=== PATIENT | female | born 1935 | race Caucasian/White ===

== ENCOUNTER 2019-09-17 17:38 | Emergency (ER) | payer MEDICARE, SELFPAY ==
--- NOTE | ~2019-09-17 | XR_ITS ---
EXAMINATION: XR knee LT min 4V DATE: 09/17/2019 18:35 INDICATION: Posterior left knee pain following twisting injury. TECHNIQUE: Anteroposterior, 2 oblique and crosstable lateral views of the left knee were obtained COMPARISON: None. FINDINGS: Alignment is normal. No fracture. Small patellar marginal osteophytes with mild cortical irregularit y along the apical ridge consistent with at least mild osteoarthritis. Possible small left knee joint effusion without layering lipohemarthrosis. Multiple prominent subcutaneous varicosities extending f rom the visualized mid thigh to the proximal calf. IMPRESSION: 1. No acute osseous abnormality. Reviewed, dictated and finalized at location A. [employer]
[2019-09-17 18:04] VITALS: BP 119/61; PULSE 81; RESP 18; TEMP 37.7; O2SAT 97
--- NOTE | 2019-09-17 19:10 | ED.LOWEXIN ---
HPI - Extremity Injury (Lower) General Chief Complaint: Extremity Injury, Lower Stated Complaint: left knee pain Time Seen by Provider: 09/17/19 19:10 Source: patient and RN notes reviewed Mode of arrival: ambulatory Limitations: no limitations History of Present Illness HPI Narrative: 83 year old female presents to [facility] care with complaints of left knee pain in posterior aspect with some radiation to posterior thigh for the past 3-4 days. Patient states that she got into a jeep and felt a pull in the posterior aspect of her left knee. [facility] and walked more thee than she has been with increase in her pain this evening. Patient has strong pulses to her left foot, denies any tingling or numbness to left leg or foot, has taken Ibuprofen and used arthritis cream and heating pad to her knee with no resolution of her symptoms. MD complaint: knee injury Onset (ago): day(s) (3-4 days) Injury: Left: knee Type of Injury: hyperextension and hyperflexion Place: home Relieving factors: NSAID, rest and other (arthritis cream, epsom salt bath and heating pad) Exacerbating factors: weight bearing and movement (especially bending) Context: other (getting into jeep) Associated symptoms: ambulatory (with limping gait) and other (pulling sensation posterior left knee) Other symptoms: none Treatments prior to arrival: NSAIDS and other (heat, epsom salt bath, arthritis cream) Related Data Home Medications Medication Instructions Recorded Confirmed albuterol sulfate [ProAir HFA] 2 puff INHALATION QID PRN 09/17/19 09/17/19 aspirin 81 mg PO DAILY 09/17/19 09/17/19 hydrochlorothiazide 50 mg PO DAILY 09/17/19 09/17/19 sertraline [Zoloft] 25 mg PO DAILY 09/17/19 09/17/19 verapamil 180 mg PO DAILY 09/17/19 09/17/19 Allergies Allergy/AdvReac Type Severity Reaction Status Date / Time Sulfa (Sulfonamide Allergy Mild Dizziness Verified 09/17/19 18:23 Antibiotics) erythromycin base AdvReac Intermediate Palpitation Verified 09/17/19 18:23 s morphine AdvReac Intermediate Headache Verified 09/17/19 18:23 naproxen AdvReac Intermediate Palpitation Verified 09/17/19 18:23 s beta blockers AdvReac Intermediate Dyspnea / Uncoded 05/08/15 19:19 SOB Review of Systems Review of Systems: Narrative: CONSTITUTIONAL: Denies fever, chills, or sweats. EYES: Denies visual changes, redness, or discharge. ENT: Denies rhinorrhea, congestion, sore throat, or otalgia. CARDIOVASCULAR: Denies chest pain, palpitations, or edema. RESPIRATORY: Denies cough or dyspnea. GASTROINTESTINAL: Denies abdominal pain, nausea, vomiting, or diarrhea. GENITOURINARY: Denies dysuria or hematuria. SKIN: Denies rash or itching. MUSCULOSKELETAL: Denies back pain, positive for pain to posterior aspect of left knee,myalgia. NEUROLOGIC: Denies headache, numbness, or weakness. PSYCHIATRIC:positive for anxiety no depression. All systems reviewed & are unremarkable except as noted in HPI and below PMFSH Past Medical History Medical History (Updated 09/19/19 @ 16:23 by Chhaya Levy NP) Anxiety Asthma Diverticulitis GERD (gastroesophageal reflux disease) Surgical History Surgical History (Updated 09/19/19 @ 15:27 by Chhaya Levy NP) H/O breast biopsy H/O: hysterectomy History of carpal tunnel surgery Social History Social History (Updated 09/19/19 @ 15:27 by Chhaya Levy NP) Smoking status: Never smoker Living arrangements: with family Occupation/Education: retired Gender identity (if verbalized by the patient): Female Comments At time of signature, agree with nursing past medical, surgical, social and family history. There is no relevant family history pertinent to the presenting complaint Exam Narrative: Exam Narrative: GENERAL: Well-appearing, well-nourished, and in no acute distress. HEAD: Normocephalic, atraumatic. EYES: PERRLA and EOMI. ENT: Nares clear, no rhinorrhea or epistaxis. Mucous membranes m
== END 2019-09-17 19:43 | disposition home or self-care (01) ==
PROVIDERS: Emergency Provider Registered Nurse; PCP Internal Medicine
DX: S83.92XA Sprain of unspecified site of left knee, initial encounter (principal); X50.3XXA Overexertion from repetitive movements, initial encounter; Y93.01 Activity, walking, marching and hiking; M17.12 Unilateral primary osteoarthritis, left knee; M25.462 Effusion, left knee; F41.9 Anxiety disorder, unspecified; J45.909 Unspecified asthma, uncomplicated; K21.9 Gastro-esophageal reflux disease without esophagitis
CPT/HCPCS: 73564; 99213; G0463

== ENCOUNTER 2019-12-24 15:30 | Emergency (ER) | payer MEDICARE, SELFPAY ==
--- NOTE | 2019-12-24 15:35 | ED.GENADULT ---
HPI - General Adult General Chief complaint: Ear Stated complaint: ear wax Time Seen by Provider: 12/24/19 15:35 Source: patient Mode of arrival: ambulatory Limitations: no limitations History of Present Illness HPI narrative: 83-year-old female patient presents to the [facility] with complaints of ear wax in the right ear. Patient states that she went to get her fitted for her hearing aids today and the molding process technician told her that she had some earwax in her right ear that needed to be removed before she can get fitted because he did not want to push it into the eardrum. Patient denies any pain to the ear. Denies any discharge or fevers. Related Data Home Medications Medication Instructions Recorded Confirmed albuterol sulfate [ProAir HFA] 2 puff INHALATION QID PRN 09/17/19 12/24/19 aspirin 81 mg PO DAILY 09/17/19 12/24/19 hydrochlorothiazide 50 mg PO DAILY 09/17/19 12/24/19 sertraline [Zoloft] 25 mg PO DAILY 09/17/19 12/24/19 verapamil 180 mg PO DAILY 09/17/19 12/24/19 Allergies Allergy/AdvReac Type Severity Reaction Status Date / Time Sulfa (Sulfonamide Allergy Mild Dizziness Verified 12/24/19 15:38 Antibiotics) Beta-Blockers AdvReac Intermediate Dyspnea / Verified 12/24/19 15:38 (Beta-Adrenergic Bloc SOB erythromycin base AdvReac Intermediate Palpitation Verified 12/24/19 15:38 s morphine AdvReac Intermediate Headache Verified 12/24/19 15:38 naproxen AdvReac Intermediate Palpitation Verified 12/24/19 15:38 s Review of Systems Review of Systems: Narrative: CONSTITUTIONAL: Denies fever, chills, or sweats. EYES: Denies visual changes, redness, or discharge. ENT: Denies rhinorrhea, congestion, sore throat, or otalgia. Positive earwax right ear CARDIOVASCULAR: Denies chest pain, palpitations, or edema. RESPIRATORY: Denies cough or dyspnea. GASTROINTESTINAL: Denies abdominal pain, nausea, vomiting, or diarrhea. GENITOURINARY: Denies dysuria or hematuria. SKIN: Denies rash or itching. MUSCULOSKELETAL: Denies back pain, joint pain, or myalgia. NEUROLOGIC: Denies headache, numbness, or weakness. PSYCHIATRIC: Denies anxiety or depression. ON LICENSE OF [facility] Past Medical History Medical History Anxiety Asthma Diverticulitis GERD (gastroesophageal reflux disease) Surgical History Surgical History H/O breast biopsy H/O: hysterectomy History of carpal tunnel surgery Social History Social History Smoking status: Never smoker Gender identity (if verbalized by the patient): Female Comments At the time of my signature I agree with nursing past medical history, surgical, social, and family history. There is no relevant family history pertinent to the presenting complaint. Exam Narrative: Exam Narrative: GENERAL: Well-appearing, well-nourished, and in no acute distress. HEAD: Normocephalic, atraumatic. EYES: PERRLA and EOMI. ENT: Nares clear, no rhinorrhea or epistaxis. Mucous membranes moist. Patient has a little bit of earwax noted to the right ear in the canal it is nonobstructing. TM looks well intact with no surrounding erythema. NECK: Supple. No lymphadenopathy CHEST: Clear to auscultation. No respiratory distress. HEART: Regular rate and rhythm. No murmur heard. Normal peripheral pulses. ABDOMEN: Soft, nontender, nondistended, normal active bowel sounds. EXTREMITIES: Normal range of motion. No edema. SKIN: Warm, dry, no rash. NEURO: No focal deficits. Alert and oriented x3. Course Vital Signs Vital signs: Vital Signs Temperature 38.1 C H 12/24/19 15:36 Pulse Rate 69 12/24/19 15:36 Respiratory Rate 16 12/24/19 15:36 Blood Pressure 144/61 H 12/24/19 15:36 Pulse Oximetry 97 12/24/19 15:36 Temperature 38.1 C H 12/24/19 15:36 Pulse Rate 69 12/24/19 15:36 Respiratory Rate 16 12/24/19 15:36 Blood Pressure 144/61
[2019-12-24 15:36] VITALS: BP 144/61; PULSE 69; RESP 16; TEMP 38.1; O2SAT 97
== END 2019-12-24 16:00 | disposition home or self-care (01) ==
PROVIDERS: Emergency Provider Nurse Practitioner Family; PCP Internal Medicine
DX: H93.8X1 Other specified disorders of right ear (principal); K21.9 Gastro-esophageal reflux disease without esophagitis; J45.909 Unspecified asthma, uncomplicated; I10 Essential (primary) hypertension
CPT/HCPCS: 99213; G0463

== ENCOUNTER 2023-06-21 15:11 | Emergency (ER) | payer MEDICARE, SELFPAY ==
[2023-06-21 18:00] VITALS: BP 104/70; PULSE 90; RESP 19; O2SAT 98
--- NOTE | 2023-06-21 18:14 | ECG_ITS ---
Measurements Intervals [place] Rate: 89 P: 96 MA: 158 QRS: -7 QRSD: 82 T: 27 QT: 339 QTc: 412 Interpretive Statements SINUS RHYTHM INFERIOR INFARCT, AGE INDETERMINATE BORDERLINE ST ABNORMALITY- ANTEROLATERAL LEADS BASELINE ARTIFACT- I, III, AVL ABNORMAL ECG COMPARED TO ECG 05/15/2019 12:39:55 ST (T WAVE) DEVIATION NOW PRESENT Electronically Signed On 06-21-2023 20:01:37 [employer]SULT[employer] by Ishan Saavedra D.O.
--- NOTE | 2023-06-21 18:18 | ED.WEAKNESS ---
HPI - Weakness General Chief complaint: Weakness Stated complaint: covid + Time Seen by Provider: 06/21/23 17:59 Source: patient, RN notes reviewed and old records reviewed Mode of arrival: ambulatory Limitations: no limitations History of Present Illness HPI Narrative: This is an 87 year old female with history arrhythmia, hypertension who presents for evaluation COVID positive and weakness. PAtient states she has come to town to visit family. She started to feel shaky, weak yesterday. She also reports frontal headache and sore throat yesterday. She states she was having trouble walking so they went to urgent care. Urgent care found that patient was COVID + so she was sent to ER. Patient states her headache and sore throat have improved She denies falling or hitting her head. She denies chest pain , shortness of breath, nausea, vomiting or diarrhea. Related Data Home Medications Medication Instructions Recorded Confirmed albuterol sulfate 90 mcg/actuation 2 puff inhalation QID PRN Dyspnea 09/17/19 12/24/19 aerosol inhaler (ProAir HFA) aspirin 81 mg tablet,delayed 81 mg PO DAILY 09/17/19 12/24/19 release hydrochlorothiazide 50 mg tablet 50 mg PO DAILY 09/17/19 12/24/19 sertraline 25 mg tablet (Zoloft) 25 mg PO DAILY 09/17/19 12/24/19 verapamil 180 mg tablet,extended 180 mg PO DAILY 09/17/19 12/24/19 release Allergies Allergy/AdvReac Type Severity Reaction Status Date / Time Sulfa (Sulfonamide Allergy Mild Dizziness Verified 12/24/19 15:38 Antibiotics) Beta-Blockers AdvReac Intermediate Dyspnea / Verified 12/24/19 15:38 (Beta-Adrenergic Bloc SOB erythromycin base AdvReac Intermediate Palpitation Verified 12/24/19 15:38 s morphine AdvReac Intermediate Headache Verified 12/24/19 15:38 naproxen AdvReac Intermediate Palpitation Verified 12/24/19 15:38 s Review of Systems Constitutional: Constitutional: Reports weakness ENT: Reports sore throat Cardiovascular: Cardiovascular: Denies syncope, Denies rapid heart rate, Denies irregular heart rhythm, Denies leg edema and Denies dyspnea Respiratory: Respiratory: Denies chest congestion, Denies hemoptysis, Denies excessive phlegm production and Denies dyspnea Gastrointestinal: Gastrointestinal: Denies abdominal pain, Denies hematochezia, Denies diarrhea and Denies vomiting Genitourinary: Genitourinary: Denies hematuria and Denies dysuria Musculoskeletal: Musculoskeletal: Denies joint swelling, Denies loss of height and Denies muscle weakness Neurologic: Denies syncope, Reports headache(s), Denies focal weakness and Denies weakness PMFSH Past Medical History Medical History (Updated 06/21/23 @ 20:13 by Sherrie Rodriguez MD) Anxiety Asthma Diverticulitis GERD (gastroesophageal reflux disease) Surgical History Surgical History H/O breast biopsy H/O: hysterectomy History of carpal tunnel surgery Social History Social History Smoking status: Never smoker Living arrangements: with family Occupation/Education: retired Gender identity (if verbalized by the patient): Female Exam Narrative: GENERAL: Well-appearing, well-nourished, and in no acute distress. HEAD: Normocephalic, atraumatic EYES: PERRLA and EOMI, conjunctiva clear without discharge THROAT:Mucous membranes moist, Oropharynx normal without erythema, exudate, peritonsillar swelling or fluctuance NECK: Supple, without lymphadenopathy or mass RESPIRATORY: No respiratory distress, Airway patent, Respirations non-labored, Clear to auscultation without rales, rhonchi or wheeze HEART: Regular rate and rhythm. No murmur heard. Normal peripheral pulses. ABDOMEN: Soft, nontender, nondistended, normal active bowel sounds. No masses. No rebound or guarding, No organomegaly. EXTREMITIES: No edema, normal strength with full range of motion. SKIN: Warm, dry, normal c
[2023-06-21 18:30] VITALS: BP 150/69; PULSE 92; RESP 19; O2SAT 100
[2023-06-21 18:55] LABS: Basophils Absolute Auto 0.1 K/mm3 (0.0-0.1); Basophils Percent Auto 0.6 % (0.2-1.2); Eosinophils Percent Auto 0.3 % (0-4.4); Hematocrit 40.8 % (37.0-47.0); Hemoglobin 13.5 g/dL (12.0-15.0); Immature Granulocyte Absolute 0.02 K/mm3 (0.00-0.031); Immature Granulocyte Percent A 0.3 % (0-0.5); Lymphocytes Absolute Auto 1.09 K/mm3 (0.9-3.2); Mean Corpuscular HGB Conc 33.1 g/dl (32-36); Mean Corpuscular Hemoglobin 29.4 pg (26-34); Mean Corpuscular Volume 88.9 fl (80-100); Mean Platelet Volume 9.2 fl (7.4-10.4); Monocytes Absolute Auto 1.1 K/mm3 (0.1-0.6); Monocytes Percent Auto 14.1 % (2.6-8.5); Neutrophils Absolute Auto 5.5 K/mm3 (1.3-6.7); Neutrophils Percent Auto 70.7 % (45.5-73.1); Platelet Count Result 239 k/mm3 (150-375); Red Blood Count 4.59 M/mm3 (4.2-5.4); White Blood Count 7.8 K/mm3 (4.5-10.0)
[2023-06-21 19:07] LABS: Alanine Aminotransferase 19 U/L (6-35); Albumin Level 4.6 g/dL (3.5-5.1); Alkaline Phosphatase 81 U/L (38-126); Anion Gap 10 mmol/L (8-16); Aspartate Amino Transferase 30 U/L (14-36); Blood Urea Nitrogen 20 mg/dL (7-17); Calcium 9.9 mg/dL (8.4-10.2); Carbon Dioxide 27 mmol/L (22-30); Chloride 100 mmol/L (98-107); Estimated CRCL calculation 43 ml/min; Estimated Glomerular Filt Rate > 60; Glucose 89 mg/dL (65-110); Potassium 4.2 mmol/L (3.4-5.0); Sodium 137 mmol/L (137-145)
[2023-06-21 19:18] VITALS: PULSE 90; RESP 17; O2SAT 97
[2023-06-21 19:26] LABS: Appearance Urine Clear (Clear); Bacteria Urine None Seen /hpf; Bilirubin Urine Negative (Negative); Blood Urine 1+ (Negative); Color Urine Yellow (Yellow); Glucose Urine UA Negative (Negative); Ketones Urine 1+ mg/dL (Negative); Leukocyte Esterase Ur 1+ LEU/UL (Negative); Need Manual Microscopic Reviewed; Nitrate Urine Negative (Negative); Non Pathogenic Casts 0-2; Protein Urine Negative (Negative); Specific Grav Ur 1.021 (1.001-1.035); Squamous Epithelial Cell Urine Few /hpf (Few); Urobilinogen Urine 0.2 mg/dL (<2.0); WBC Urine 0-5 /hpf
[2023-06-21 19:29] LABS: Add Urine Microscopic? YES
[2023-06-21 19:31] LABS: Influenza A QL RT-PCR Negative (Negative); Influenza B QL RT-PCR Negative (Negative); SARS-CoV-2 RNA PCR Positive (Negative)
== END 2023-06-21 20:20 | disposition home or self-care (01) ==
PROVIDERS: Emergency Provider General Practice; PCP Internal Medicine
DX: U07.1 COVID-19 (principal); I10 Essential (primary) hypertension
CPT/HCPCS: 36415; 80053; 81001; 85025; 87636; 93005; 99283